=== PATIENT | female | born 1955 ===

== ENCOUNTER 2024-05-21 17:11 | Inpatient (IN) | payer MEDICARE, OTHER, SELFPAY ==
[2024-05-21 19:01] VITALS: BMI 28.3
[2024-05-21] MEDS ORDERED: Glucagon 1 MG/ML KIT IM PRN (19:55)
[2024-05-21] MEDS ORDERED: Insulin Lispro 100 UNIT/ML 10 ML VIAL SC PRN (19:55)
[2024-05-21] MEDS ORDERED: Dextrose 50% Abboject 50 ML SYRINGE SLOW IVP PRN (19:55)
[2024-05-21] MEDS ORDERED: Dextrose 5% in Water 1,000 ML IV PRN (19:55)
[2024-05-21] MEDS: Docusate 100 MG CAP PO SCH (20:17)
[2024-05-21] MEDS: Ondansetron ODT 4 MG TAB PO PRN (20:17)
[2024-05-21] MEDS: HYDROcodone/Acetaminophen 5/325 mg Tablet PO PRN (20:17)
[2024-05-21] MEDS: Sodium Chloride 0.9% 1,000 ML IV SCH (20:17)
[2024-05-21 20:49] LABS: #Basophils 0.03 10x3/uL (0.0-0.2); %Basophils 0.5 % (0.0-1.0); %Eosinophils 5.2 % (0.0-10.0); %Lymphocytes 17.8 % (21.0-51.0); %Monocytes 11.6 % (0.0-10.0); %Neutrophils 64.4 % (42.0-75.0); Hematocrit 23.5 % (36.0-47.0); Hemoglobin 8.1 g/dL (12.0-16.0); Mean Corpuscular HGB CONC 34.5 g/dL (32.0-36.0); Mean Corpuscular Hemoglobin 32.4 pg (27.0-31.0); Mean Platelet Volume 9.7 fL (7.4-10.4); Platelet Count 125 10x3/uL (130-400)
[2024-05-21] MEDS: hydrALAZINE 20 MG/ML VIAL SLOW IVP PRN (20:51)
[2024-05-21] MEDS ORDERED: Gabapentin 300 MG CAP PO SCH (21:00)
[2024-05-21 21:07] LABS: ALT (SGPT) Less than 5 U/L (8-55); AST (SGOT) 18 U/L (5-34); Albumin 2.8 g/dL (3.4-4.8); Alkaline Phosphatase 152 U/L (40-110); Anion Gap 12 mmol/L (10-20); BUN (Urea Nitrogen) 51 mg/dL (9.8-20.1); Bilirubin, Total 0.6 mg/dL (0.2-1.2); Calc. Creatinine Clearance 21 mL/min (70-130); Calcium 8.3 mg/dL (7.8-10.44); Carbon Dioxide 19 mmol/L (23-31); Chloride 110 mmol/L (98-107); Estimated GFR 16; Globulin 2.9 g/dL (2.4-3.5); Glucose 180 mg/dL (80-115); Potassium 3.8 mmol/L (3.5-5.1); Protein, Total 5.7 g/dL (5.8-8.1); Sodium 137 mmol/L (136-145)
[2024-05-22] MEDS: Acetaminophen 325 MG TAB PO PRN (04:53)
[2024-05-22] MEDS: Amlodipine 5 MG TAB PO SCH (08:16)
[2024-05-22] MEDS: Polyethylene Glycol 3350 17 GM Packet PO SCH (08:17)
[2024-05-22] MEDS: Insulin Lispro 100 UNIT/ML 10 ML VIAL SC PRN (17:54)
[2024-05-23] MEDS: Ondansetron PF 4 MG/2 ML Vial IVP PRN (04:22)
[2024-05-23 05:57] LABS: #Basophils 0.03 10x3/uL (0.0-0.2); %Basophils 0.5 % (0.0-1.0); %Eosinophils 4.8 % (0.0-10.0); %Monocytes 9.2 % (0.0-10.0); %Neutrophils 68.6 % (42.0-75.0); Hematocrit 23.4 % (36.0-47.0); Hemoglobin 7.9 g/dL (12.0-16.0); Mean Corpuscular HGB CONC 33.8 g/dL (32.0-36.0); Mean Corpuscular Hemoglobin 32.1 pg (27.0-31.0); Mean Corpuscular Volume 95.1 fL (78.0-98.0); Mean Platelet Volume 9.6 fL (7.4-10.4); Platelet Count 141 10x3/uL (130-400); Red Blood Cell (RBC) Count 2.46 mill/uL (4.20-5.40)
[2024-05-23 06:18] LABS: Anion Gap 15 mmol/L (10-20); BUN (Urea Nitrogen) 41 mg/dL (9.8-20.1); Calc. Creatinine Clearance 26 mL/min (70-130); Calcium 8.2 mg/dL (7.8-10.44); Carbon Dioxide 17 mmol/L (23-31); Chloride 109 mmol/L (98-107); Estimated GFR 20; Glucose 169 mg/dL (80-115); Potassium 3.8 mmol/L (3.5-5.1); Sodium 137 mmol/L (136-145)
[2024-05-23] MEDS: Gabapentin 300 MG CAP PO SCH (09:49)
[2024-05-23] MEDS: Furosemide 20 MG TAB PO SCH (09:49)
[2024-05-23] MEDS: FLU (Fluad Triv) TS24-25 (65UP)/MF59C/PF 45 MCG/0.5 ML Syringe IM ONE (09:51)
[2024-05-23] MEDS: Promethazine HCl 25 MG in Sodium Chloride 0.9% 50 ML IVPB PRN (11:16)
[2024-05-23 12:05] VITALS: TEMP 98.1
[2024-05-23 12:58] VITALS: BP 175/65
[2024-05-23] MEDS ORDERED: Insulin Glargine 30 UNITS/0.3 ML VIAL SC SCH (21:00)
== END 2024-05-23 13:28 | disposition home or self-care (01) | DRG 684 ==
LOC: T4-A 18:18 → INTOOBSV 18:18 → OBSVTOIN 05-22 12:59
PROVIDERS: ADMIT Internal Medicine; ATTEND Internal Medicine
DX: N17.9 Acute kidney failure, unspecified (principal); M48.061 Spinal stenosis, lumbar region without neurogenic claudication; N18.4 Chronic kidney disease, stage 4 (severe); E11.22 Type 2 diabetes mellitus with diabetic chronic kidney disease; I12.9 Hypertensive chronic kidney disease with stage 1 through stage 4 chronic kidney disease, or unspecified chronic kidney disease; G89.29 Other chronic pain; M54.9 Dorsalgia, unspecified; D63.8 Anemia in other chronic diseases classified elsewhere; Z98.1 Arthrodesis status; Z90.710 Acquired absence of both cervix and uterus; Z90.49 Acquired absence of other specified parts of digestive tract
CPT/HCPCS: 36415; 36416; 80048; 80053; 85025; 96374; 96376; 97139; G0378; J0360; J1815; J2405; J2550; J7030; Q0162